=== PATIENT | female | born 1935 | race Caucasian/White ===

== ENCOUNTER 2018-10-10 14:54 | Emergency (ER) | payer OTHER ==
[~2018-10-10] VITALS: Ht 152.4 cm; Wt 52.6 kg
[2018-10-10] MEDS ORDERED: GLIPIZIDE XL2.5 MG (15:10)
[2018-10-10] MEDS ORDERED: FORTAMET1000 MG (15:10)
[2018-10-10] MEDS ORDERED: NEURONTIN600 MG (15:11)
[2018-10-10] MEDS ORDERED: NORVASC2.5 M1 (15:11)
== END 2018-10-10 20:55 | disposition home or self-care (01) ==
LOC: ER 14:54
DX: E16.1 Other hypoglycemia (principal)